=== PATIENT | male | born 1965 | race Two or more races ===

== ENCOUNTER 2017-07-15 14:38 | Emergency (ER) | payer MEDICAID ==
[~2017-07-15] VITALS: Ht 165.1 cm; Wt 77.1 kg
[~2017-07-15 14:38] MED LIST: CEPHALEXIN500 MG ORAL; NORCO 5-325 TA1 EAC1 ORAL
[2017-07-15] MEDS ORDERED: NKM (14:49)
[2017-07-15 14:55] VITALS: BP 152/96
--- NOTE | 2017-07-15 14:59 | Emergency Room Report ---
History of Present Illness General Chief Complaint: Chest Pain Source: Patient Present Illness HPI Patient is a 52-year-old male who presented after increased chest discomfort. Patient reports having increased chest pressure for approximately one day. Reports having pain to his left arm. The pain is constant in nature. He had associated left arm discomfort. He reports having prior history of high cholesterol. Patient denies smoker. Allergies: Coded Allergies: No Known Allergies (Unverified , 01/01/16) Patient History Reviewed Nursing Documentation: PMH: Agreed; PSxH: Agreed Nursing Documentation-PMH Past Medical History: No Stated History Review of Systems All Other Systems: negative except mentioned in HPI Physical Exam Vital Signs Date Time Temp Pulse Resp B/P (MAP) Pulse Ox O2 Delivery O2 Flow Rate FiO2 07/15/17 14:45 76 19 152/96 99 Room Air Sp02 EP Interpretation: reviewed, normal General Appearance: normal inspection, well appearing, no apparent distress, alert, GCS 15 Head: atraumatic ENT: normal ENT inspection, hearing grossly normal, normal voice Neck: normal inspection, full range of motion, supple, no bony tend Respiratory: normal inspection, lungs clear, normal breath sounds, no respiratory distress, no retraction, no wheezing Cardiovascular #1: regular rate, rhythm, no edema Gastrointestinal: normal inspection, normal bowel sounds, non tender, soft, no guarding, no hernia Genitourinary: no CVA tenderness Musculoskeletal: normal inspection, back normal, normal range of motion Neurologic: normal inspection, alert, oriented x3, responsive, compliance administrator III-XII nml as tested, speech normal Psychiatric: normal inspection, judgement/insight normal, mood/affect normal Skin: normal inspection, normal color, no rash Medical Decision Making Diagnostic Impression: Primary Impression: Chest pain Additional Impression: Unstable angina ER Course patient presented for chest pain.Differential diagnosis included but was not limited to acute coronary syndrome, pulmonary embolism, pneumonia, aortic dissection, shingles, pneumothorax, aortic dissection, esophageal rupture, pericarditis. Because of complexity of patient's case laboratory testing and imaging studies were ordered. Laboratory studies showed a normal troponin. EKG interpreted by me showed normal sinus rhythm with a rate of [address] or T wave changes. Patient had been sent in by his physician. The patient is advised that he should be admitted for further evaluation of cardiac disease. The patient was advised risk benefits alternatives of leaving AGAINST MEDICAL ADVICE and he indicated understanding and all questions are answered patient still continued want to leave and signed AGAINST MEDICAL ADVICE. Despite risks including but not limited to disability and worsening of current lifestyle. Labs Test 07/15/17 15:06 White Blood Count 9.4 K/UL (4.8-10.8) Red Blood Count 5.75 M/UL (4.70-6.10) Hemoglobin 17.5 G/DL (14.2-18.0) Hematocrit 49.5 % (42.0-52.0) Mean Corpuscular Volume 86 FL (80-99) Mean Corpuscular Hemoglobin 30.4 PG (27.0-31.0) Mean Corpuscular Hemoglobin Concent 35.4 G/DL (32.0-36.0) Red Cell Distribution Width 11.1 % (11.6-14.8) Platelet Count 255 K/UL (150-450) Mean Platelet Volume 6.8 FL (6.5-10.1) Neutrophils (%) (Auto) 64.2 % (45.0-75.0) Lymphocytes (%) (Auto) 27.4 % (20.0-45.0) Monocytes (%) (Auto) 6.9 % (1.0-10.0) Eosinophils (%) (Auto) 0.9 % (0.0-3.0) Basophils (%) (Auto) 0.6 % (0.0-2.0) Sodium Level 142 MMOL/L (136-145) Potassium Level 4.3 MMOL/L (3.5-5.1) Chloride Level 105 MMOL/L (98-107) Carbon Dioxide Level 28 MMOL/L (21-32) Anion Gap 9 mmol/L (5-15) Blood Urea Nitrogen 16 mg/dL (7-18) Creatinine 1.0 MG/DL (0.55-1.30) Estimat Glomerular Filtration Rate > 60 mL/min (>60) Glucose Level 106 MG/DL (74-106) Calcium Level 9.2 MG/DL (8.5-10.1) Total Bilirubin 0.8 MG/DL (0.2-1.0) Aspartate Amino Transf (AST/SGOT) 23 U/L (15-37) Alanine Aminotransferase (ALT/SGPT) 53 U/L (12-78) Alkaline Phosphatase 118 U/L (46-116) Total Creatine Kinase 155 U/L (26-308) Creatine Kinase MB 0.8 NG/ML (0.0-3.6) Creatine Kinase MB Relative Index 0.5 Troponin I 0.000 ng/mL (0.000-0.056) Pro-B-Type Natriuretic Peptide 12 pg/mL (0-125) Total Protein 7.9 G/DL (6.4-8.2) Albumin 4.3 G/DL (3.4-5.0) Globulin 3.6 g/dL Albumin/Globulin Ratio 1.2 (1.0-2.7) EKG Diagnostic Results Rate: normal - 77 Rhythm: NSR ST Segments: no acute changes Last Vital Signs Date Time Temp Pulse Resp B/P (MAP) Pulse Ox O2 Delivery O2 Flow Rate FiO2 07/15/17 14:55 74 19 152/96 99 Room Air Status: improved Disposition: AGAINST MEDICAL ADVICE Condition: Serious Ajit Lorenz July 15, 2017 14:59
[2017-07-15] MEDS ORDERED: Isovue-370 150ml vial INJ PRN (15:00)
[2017-07-15 15:32] LABS: ANION GAP 9 mmol/L (5-15); BLOOD UREA NITROGEN 16 mg/dL (7-18); CALCIUM 9.2 MG/DL (8.5-10.1); CARBON DIOXIDE 28 MMOL/L (21-32); CHLORIDE 105 MMOL/L (98-107); POTASSIUM 4.3 MMOL/L (3.5-5.1); SODIUM 142 MMOL/L (136-145)
[2017-07-15 15:34] LABS: BASOPHILS % (AUTO) 0.6 % (0.0-2.0); EOSINOPHILS % (AUTO) 0.9 % (0.0-3.0); HEMATOCRIT 49.5 % (42.0-52.0); HEMOGLOBIN 17.5 G/DL (14.2-18.0); LYMPHOCYTES % (AUTO) 27.4 % (20.0-45.0); MEAN CORPUSCULAR VOLUME 86 FL (80-99); MONOCYTES % (AUTO) 6.9 % (1.0-10.0); NEUTROPHILS % (AUTO) 64.2 % (45.0-75.0); PLATELET COUNT 255 K/UL (150-450); RED BLOOD COUNT 5.75 M/UL (4.70-6.10); RED CELL DISTRIBUTION WIDTH 11.1 % (11.6-14.8); WHITE BLOOD COUNT 9.4 K/UL (4.8-10.8)
--- NOTE | 2017-07-15 15:40 | Diagnostic Imaging Report ---
Indication: Dyspnea Comparison: None A single view chest radiograph was obtained. Findings: Cardiomediastinal appearance is within normal limits for age. Pulmonary vascularity is appropriate. The diaphragmatic contour is smooth and costophrenic angles are sharp. No pleural effusions are identified. The bones are unremarkable. Impression: No acute findings
[2017-07-15 15:51] LABS: ALANINE AMINOTRANSFERASE 53 U/L (12-78); ALBUMIN 4.3 G/DL (3.4-5.0); ALBUMIN/GLOBULIN RATIO 1.2 (1.0-2.7); ALKALINE PHOSPHATASE 118 U/L (46-116); ASPARTATE AMINO TRANSFERASE 23 U/L (15-37); BILIRUBIN,TOTAL 0.8 MG/DL (0.2-1.0); CKMB 0.8 NG/ML (0.0-3.6); CREATINE KINASE 155 U/L (26-308)
--- NOTE | 2017-07-15 16:41 | Diagnostic Imaging Report ---
Indication: Chest pain Technique: Continuous helical transaxial imaging of the chest was obtained from the thoracic inlet to the upper abdomen during rapid intravenous contrast administration. Arterial phase of enhancement obtained. Coronal 2-D reformats were also obtained and maximum intensity projection images in multiple planes. Study obtained in a Siemens sensation [address] Automatic Exposure Control was utilized. Total Dose length Product (DLP): 906.[address] Dose Index Volume (CTDIvol): 29.38 mGy Comparison: None Findings: The pulmonary artery is suboptimally opacified, but shows no definite filling defects. There is no adenopathy, pleural or pericardial effusions are identified. There is no aortic dissection or aneurysm identified within the chest. The lungs are clear, but the posterior sulcus of the lungs is below the [id number]. Visualized part of the upper abdomen is unremarkable. Impression: No evidence of pulmonary embolus. Somewhat limited study. Portion of the lower lung castro not imaged. The CT scanner at [facility] is accredited by the [employer] and the scans are performed using dose optimization techniques as appropriate to a performed exam including Automatic Exposure control.
[2017-07-15 16:58] VITALS: BP 131/85
[2017-07-15 18:30] VITALS: BP 116/81
--- NOTE | 2017-07-16 15:49 | Cardiology Report ---
APPROVED REPORT EKG Measurement Heart [id number] Normal sinus rhythm Normal ECG
== END 2017-07-15 18:32 | disposition left against medical advice (07) ==
LOC: EMR 15:33 → 2E 17:50 → UNDOADMIN 17:50 → EDBEDREQ 18:16 → CANBEDREQ 19:12
DX: R07.89 Other chest pain (principal); I20.0 Unstable angina
CPT/HCPCS: 36415; 71045; 71275; 80053; 82550; 82553; 83880; 84484; 85025; 93005; 99284; Q9967

== ENCOUNTER 2017-11-30 00:10 | Emergency (ER) | payer MEDICAID ==
[~2017-11-30] VITALS: Ht 160 cm; Wt 77.1 kg
[~2017-11-30 00:10] MED LIST changes: +NKM
[2017-11-30] MEDS ORDERED: Morphine Sulfate 4mg/ml Inj (IV USE ONLY) IVP ONE (00:30)
--- NOTE | 2017-11-30 00:53 | Emergency Room Report ---
History of Present Illness General Chief Complaint: Abdominal Pain Source: Patient Present Illness HPI Is a 52-year-old male with no past medical history. He presents with chief complaint of upper quadrant pain is been ongoing for the last 3 days. pain is 9 out of 10. Pain going to the back. He has nausea vomiting but no diarrhea. Has subjective fever and chills. Worse with eating. Worse with palpation. Radiating to the back. Never had this problem before. Not a drinker. Allergies: Coded Allergies: No Known Allergies (Unverified , 01/01/16) Patient History Past Medical History: none, see triage record, old chart reviewed Past Surgical History: none Pertinent Family History: none Social History: Denies: smoking Immunizations: other Reviewed Nursing Documentation: PMH: Agreed; PSxH: Agreed Nursing Documentation-PM Past Medical History: No Stated History Review of Systems Eye: Denies: eye pain, blurred vision ENT: Denies: ear pain, nose congestion, throat swelling Respiratory: Denies: cough, shortness of breath Cardiovascular: Denies: chest pain, palpitations Gastrointestinal: Reports: abdominal pain, nausea, vomiting; Denies: diarrhea Musculoskeletal: Denies: back pain, joint pain Skin: Denies: rash Neurological: Denies: headache, numbness Endocrine: Denies: increased thirst, increased urine Hematologic/Lymphatic: Denies: easy bruising All Other Systems: negative except mentioned in HPI Physical Exam Vital Signs Date Time Temp Pulse Resp B/P (MAP) Pulse Ox O2 Delivery O2 Flow Rate FiO2 11/30/17 00:14 98.4 80 21 136/91 96 Room Air 98.4 vitals normal Sp02 EP Interpretation: reviewed, normal General Appearance: well appearing, no apparent distress, alert Head: normocephalic, atraumatic Eyes: bilateral eye PERRL, bilateral eye EOMI ENT: hearing grossly normal, normal pharynx Neck: full range of motion, supple, no meningismus Respiratory: chest non-tender, lungs clear, normal breath sounds Cardiovascular #1: regular rate, rhythm, no murmur Gastrointestinal: normal bowel sounds, no mass, no organomegaly, no bruit, non- distended, tenderness - upper quadrants Musculoskeletal: back normal, gait/station normal, normal range of motion Psychiatric: mood/affect normal Skin: warm/dry Medical Decision Making Diagnostic Impression: Primary Impression: Ureteral calculus, right ER Course Patient with abdominal pain and has ureteral stone. There is some hematuria in his urine. Does have a kidney of kidney stone the past and able to pass it. No evidence of obstruction. No infection. Pain is better controlled now. We' ll discharge home. Lab Results Impression labs unremarkable CT/MRI/US Diagnostic Results CT/MRI/US Diagnostic Results : Imaging Test Ordered: CT abdomen and pelvis Impression Read by radiologist. 2 mm proximal right ureteral stone. Last Vital Signs Date Time Temp Pulse Resp B/P (MAP) Pulse Ox O2 Delivery O2 Flow Rate FiO2 11/30/17 00:14 98.4 80 21 136/91 96 Room Air 98.4 Status: improved Disposition: HOME, SELF-CARE Condition: Stable Scripts Tamsulosin HCl (Flomax) 0.4 Mg Cap.er.24h 0.4 MG ORAL DAILY, #30 CAP Prov: CHRISTOPHER CLANCY M.D. 11/30/17 Hydrocodone/Acetaminophen 5-325* (HYDROCODONE/ACETAMINOPHEN 5-325*) 1 Each Tablet 1 TAB ORAL Q6H PRN for For Pain, #20 TAB 0 Refills Prov: CHRISTOPHER CLANCY M.D. 11/30/17 Ibuprofen* (MOTRIN*) 600 Mg Tablet 600 MG ORAL THREE TIMES A DAY, #30 TAB 0 Refills Prov: CHRISTOPHER CLANCY M.D. 11/30/17 Additional Instructions: Follow-up with your doctor within 7 days. You may need a referral to see a urologist. Return if symptom worsen. CHRISTOPHER CLANCY M.D. Nov 30, 2017 00:53
--- NOTE | 2017-11-30 01:01 | Diagnostic Imaging Report ---
EXAM: CT Abdomen and Pelvis Without Intravenous Contrast CLINICAL HISTORY: Abdominal pain. TECHNIQUE: Axial computed tomography images of the abdomen and pelvis without intravenous contrast. CTDI is 25 mGy and DLP is 1220 mGy-cm. One or more of the following dose reduction techniques were used: automated exposure control, adjustment of the mA and/or kV according to patient size, use of iterative reconstruction technique. COMPARISON: None. FINDINGS: Lung bases: Scarring/atelectasis in lung bases. ABDOMEN: Liver: Unremarkable. Gallbladder and bile ducts: Unremarkable. No calcified stones. No ductal dilation. Pancreas: Unremarkable. No ductal dilation. Spleen: Unremarkable. No splenomegaly. Adrenals: Unremarkable. No mass. Kidneys and ureters: 2 mm stone in the proximal right ureter. No significant hydronephrosis. Nonobstructive right renal stone. Stomach and bowel: Diverticulosis. No bowel obstruction. No mucosal thickening. PELVIS: Appendix: Normal appendix. Bladder: Unremarkable. No stones. Reproductive: Unremarkable as visualized. ABDOMEN and PELVIS: Intraperitoneal space: Unremarkable. No free air. No significant fluid collection. Bones/joints: No acute fracture. No dislocation. Soft tissues: Unremarkable. Vasculature: Unremarkable. No abdominal aortic aneurysm. Lymph nodes: Unremarkable. No enlarged lymph nodes. IMPRESSION: 2 mm stone in the proximal right ureter. No significant hydronephrosis. Nonobstructive right renal stone.
[2017-11-30 01:04] LABS: APPEARANCE,URINE CLEAR; BILIRUBIN, URINE NEGATIVE (NEGATIVE); GLUCOSE, URINE (UA) NEGATIVE (NEGATIVE); KETONES,URINE NEGATIVE (NEGATIVE); LEUKOCYTE ESTERASE ,URINE NEGATIVE (NEGATIVE); NITRITE,URINE NEGATIVE (NEGATIVE); PH,URINE 5 (4.5-8.0); PROTEIN,URINE NEGATIVE (NEGATIVE); UROBILINOGEN,URINE NORMAL MG/DL (0.0-1.0)
[2017-11-30 01:11] LABS: BASOPHILS % (AUTO) 0.7 % (0.0-2.0); EOSINOPHILS % (AUTO) 1.6 % (0.0-3.0); HEMATOCRIT 48.5 % (42.0-52.0); HEMOGLOBIN 16.6 G/DL (14.2-18.0); LYMPHOCYTES % (AUTO) 24.6 % (20.0-45.0); MEAN CORPUSCULAR VOLUME 85 FL (80-99); MONOCYTES % (AUTO) 7.5 % (1.0-10.0); NEUTROPHILS % (AUTO) 65.6 % (45.0-75.0); PLATELET COUNT 263 K/UL (150-450); RED BLOOD COUNT 5.68 M/UL (4.70-6.10); RED CELL DISTRIBUTION WIDTH 10.7 % (11.6-14.8); WHITE BLOOD COUNT 10.2 K/UL (4.8-10.8)
[2017-11-30 01:12] LABS: COLOR,URINE YELLOW
[2017-11-30 01:23] LABS: ANION GAP 9 mmol/L (5-15); BLOOD UREA NITROGEN 23 mg/dL (7-18); CALCIUM 9.3 MG/DL (8.5-10.1); CARBON DIOXIDE 26 MMOL/L (21-32); CHLORIDE 108 MMOL/L (98-107); CREATININE 1.2 MG/DL (0.55-1.30); POTASSIUM 3.7 MMOL/L (3.5-5.1); SODIUM 143 MMOL/L (136-145)
[2017-11-30 01:27] LABS: ALANINE AMINOTRANSFERASE 62 U/L (12-78); ALBUMIN 4.1 G/DL (3.4-5.0); ALBUMIN/GLOBULIN RATIO 1.1 (1.0-2.7); ALKALINE PHOSPHATASE 124 U/L (46-116); ASPARTATE AMINO TRANSFERASE 27 U/L (15-37); BILIRUBIN,TOTAL 0.8 MG/DL (0.2-1.0)
[2017-11-30] MEDS ORDERED: IBUPROFEN600 MG ORAL (01:38)
[2017-11-30] MEDS ORDERED: HYDROCODON-ACE1 EA15 ORAL (01:38)
[2017-11-30] MEDS ORDERED: FLOMAX0.4 MG ORAL (01:38)
[2017-11-30 01:50] VITALS: BP 127/87
== END 2017-11-30 02:30 | disposition home or self-care (01) ==
LOC: EMR 02:29
DX: N20.1 Calculus of ureter (principal)
CPT/HCPCS: 36415; 74176; 80053; 81003; 83690; 85025; 96361; 96374; 96375; 99284; J2270; J2405

== ENCOUNTER 2020-01-28 11:10 | Emergency (ER) | payer MEDICAID ==
[~2020-01-28] VITALS: Ht 162.6 cm; Wt 69.9 kg
[~2020-01-28 11:10] MED LIST changes: +FLOMAX0.4 MG ORAL; +HYDROCODON-ACE1 EA15 ORAL; +IBUPROFEN600 MG ORAL
--- NOTE | 2020-01-28 11:27 | NUR ---
ED Nurse Note: Pt walked into ED for R side pain for 5 days. Pt has seen GI specialist but was inconclusive. Pt states he has sharp pains at night 8/10 with a small amount of vomiting. Pt is alert and orientedx4, ambulatory. He has been seen by JASON.
[2020-01-28 11:34] VITALS: BP 145/81
--- NOTE | 2020-01-28 11:35 | Emergency Room Report ---
History of Present Illness General Chief Complaint: Pain Present Illness HPI Patient is a 54-year-old male who presents for increased right-sided flank pain. Onset of symptoms approximately 5 days ago.Reports of increased pain to the right flank. Pain is sharp in nature. Associate with nausea and vomiting. Patient denies any fever but has apparently had some recent weight loss approximately 20 pounds. Had previous work-up in the past which included ultrasound which apparently did not show any evidence of gallstones. Pain is localized to the right side of the ribs. He had previously been prescribed omeprazole but had not had any improvement with this. Patient had not been monteiro ving any diarrhea. Reports having episodic vomiting associate with pain. Denies any diarrhea. Pain is worse with movement. (Ajit Lorenz MD) Allergies: Coded Allergies: No Known Allergies (Unverified , 01/01/16) COVID-19 Screening Contact w/high risk pt: No Experienced COVID-19 symptoms?: No COVID-19 Testing performed APPLIED ANTHROPOLOGIST: No (Ajit Lorenz MD) Patient History Reviewed Nursing Documentation: PMH: Agreed; PSxH: Agreed (Ajit Lorenz MD) Review of Systems All Other Systems: negative except mentioned in HPI (Ajit Lorenz MD) Physical Exam Vital Signs Date Time Temp Pulse Resp B/P (MAP) Pulse Ox O2 Delivery O2 Flow Rate FiO2 01/28/20 11:13 98.2 78 18 150/84 (106) 96 Room Air Sp02 EP Interpretation: reviewed, normal General Appearance: normal inspection, well appearing, no apparent distress, alert, GCS 15 Head: atraumatic ENT: normal ENT inspection, hearing grossly normal, normal voice Neck: normal inspection, full range of motion, supple, no bony tend Respiratory: normal inspection, lungs clear, normal breath sounds, no respiratory distress, no retraction, no wheezing Cardiovascular #1: regular rate, rhythm, no edema Gastrointestinal: normal inspection, normal bowel sounds, non tender, soft, no guarding, no hernia Genitourinary: no CVA tenderness Musculoskeletal: normal inspection, back normal, normal range of motion Neurologic: alert, motor strength/tone normal, field case manager III-XII nml as tested, respo nsive, speech normal, normal inspection Psychiatric: normal inspection, judgement/insight normal, mood/affect normal (Ajit Lorenz MD) Medical Decision Making Diagnostic Impression: Primary Impression: RUQ pain Additional Impressions: Renal calculi Enlarged prostate Diverticulosis ER Course Assumed care of the patient from the previous provider at approximately 1430. Please refer to initial note for full history and physical exam. Briefly, 54-year-old male presenting with right-sided abdominal pain several months duration. Labs returned within normal limits. At the time of signout we are awaiting CT results. CT shows previously demonstrated diverticulosis without diverticulitis, prostamegaly, right intrarenal calculus but no ureteral calculi. Also notes some mild fluid-filled small bowel loops which may indicate a mild enteritis or diarrheal illness of the patient denies symptoms. CT shows mild gallbladder wall thickening without definite stones. LFTs and bilirubin within normal limits. Patient states he is already had an ultrasound of the gallbladder and liver which did not show any gallbladder disease. Believe he would benefit from ERCP/MRCP or MRI at an outpatient basis. A copy of his report and labs have been provided. His pain is now resolved. He will call his PMD tomorrow to schedule this. Will discharge with pain medication. Stable for outpatient follow-up. Laboratory Tests Test 01/28/20 11:25 01/28/20 11:55 Urine Color Yellow Urine Appearance Clear Urine pH 7 (4.5-8.0) Urine Specific [place] 1.015 (1.005-1.035) Urine Protein Negative (NEGATIVE) Urine Glucose (UA) Negative (NEGATIVE) Urine Ketones 1+ (NEGATIVE) H Urine Blood Negative (NEGATIVE) Urine Nitrite Negative (NEGATIVE) Urine Bilirubin Negative (NEGATIVE) Urine Urobilinogen 1 MG/DL (0.0-1.0) H Urine Leukocyte Esterase 1+ (NEGATIVE) H Urine RBC 0 /HPF (0 - 0) Urine WBC 0-2 /HPF (0 - 0) Urine Squamous Epithelial Cells Occasional /LPF Urine Calcium Oxalate Crystals Few /LPF (NONE) Urine Bacteria Occasional /HPF (NONE) White Blood Count 8.6 K/UL (4.8-10.8) Red Blood Count 5.35 M/UL (4.70-6.10) Hemoglobin 16.3 G/DL (14.2-18.0) Hematocrit 48.4 % (42.0-52.0) Mean Corpuscular Volume 90 FL (80-99) Mean Corpuscular Hemoglobin 30.4 PG (27.0-31.0) Mean Corpuscular Hemoglobin Concent 33.6 G/DL (32.0-36.0) Red Cell Distribution Width 12.4 % (11.6-14.8) Platelet Count 235 K/UL (150-450) Mean Platelet Volume 6.3 FL (6.5-10.1) L Neutrophils (%) (Auto) 52.8 % (45.0-75.0) Lymphocytes (%) (Auto) 38.3 % (20.0-45.0) Monocytes (%) (Auto) 7.2 % (1.0-10.0) Eosinophils (%) (Auto) 1.0 % (0.0-3.0) Basophils (%) (Auto) 0.7 % (0.0-2.0) Prothrombin Time 11.5 SEC (9.30-11.50) Prothrombin Time INR 1.0 (0.9-1.1) Activated Partial Thromboplast Time 25 SEC (23-33) Sodium Level 142 MMOL/L (136-145) Potassium Level 3.8 MMOL/L (3.5-5.1) Chloride Level 105 MMOL/L (98-107) Carbon Dioxide Level 29 MMOL/L (21-32) Anion Gap 8 mmol/L (5-15) Blood Urea Nitrogen 14 mg/dL (7-18) Creatinine 1.1 MG/DL (0.55-1.30) Estimated Glomerular Filtration Rate > 60 mL/min (>60) Glucose Level 96 MG/DL (74-106) Calcium Level 8.7 MG/DL (8.5-10.1) Total Bilirubin 0.7 MG/DL (0.2-1.0) Aspartate Amino Transferase (AST) 25 U/L (15-37) Alanine Aminotransferase (ALT) 42 U/L (12-78) Alkaline Phosphatase 120 U/L (46-116) H Troponin I 0.001 ng/mL (0.000-0.056) Total Protein 7.3 G/DL (6.4-8.2) Albumin 4.0 G/DL (3.4-5.0) Globulin 3.3 g/dL Albumin/Globulin Ratio 1.2 (1.0-2.7) Lipase 318 U/L (73-393) (Luis Hyman MD) CT/MRI/US Diagnostic Results CT/MRI/US Diagnostic Results : Impression Impression: Limited assessment of the GI tract, due to lack of enteric contrast administration Prominent fluid-filled small bowel loops, could indicate mild enteritis and/or diarrheal illness. Nonobstructive right intrarenal calculus is again demonstrated. No evidence of ureteral calculus or obstructive uropathy. Previously demonstrated right ureteral calculus is no longer evident Colonic diverticulosis. No evidence of diverticulitis Mild gallbladder wall thickening, no definite gallstones. Significance/etiology uncertain. Consider further evaluation with sonography if there is high clinical suspicion for gallbladder disease. Prostatomegaly Bullous changes at both lung bases The CT scanner at [facility] is accredited by the [employer] and the scans are performed using protocols designed to limit radiation exposure to as low as reasonably achievable to attain images of sufficient resolution adequate for diagnostic evaluation. Dictated By: Reji Villasenor MD Electronically Signed By:Reji Villasenor MD Signed Date/Time01/28/20 4557 CC: Ajit Lorenz MD (Luis Hyman MD) Last Vital Signs Date Time Temp Pulse Resp B/P (MAP) Pulse Ox O2 Delivery O2 Flow Rate FiO2 01/28/20 11:13 98.2 78 18 150/84 (106) 96 Room Air (Ajit Lorenz MD) Disposition: HOME, SELF-CARE Condition: Stable Scripts Ondansetron Odt* (ZOFRAN ODT*) 4 Mg Tab.rapdis 4 MG BC EVERY 6 HOURS PRN for Nausea & Vomiting, #20 TAB 0 Refills Prov: Luis Hyman MD 01/28/20 Lidocaine Patch* (Lidoderm Patch*) 1 Each Adh..patch 1 PATCH TOPIC DAILY, #7 PATCH 0 Refills Patch(es) may remain in place for up to 12 hours in any 24-hour period. Prov: Luis Hyman MD 01/28/20 Ibuprofen* (MOTRIN*) 600 Mg Tablet 600 MG ORAL Q6H PRN for For Pain, #30 TAB 0 Refills Prov: Luis Hyman MD 01/28/20 Hydrocodone/Acetaminophen 5-325* (HYDROCODONE/ACETAMINOPHEN 5-325*) 1 Each Tablet 1 TAB ORAL Q6H PRN for For Pain, #20 TAB 0 Refills Prov: Luis Hyman MD 01/28/20 Referrals: [facility],REFERRING (PCP) Ajit Lorenz MD Jan 28, 2020 11:35 Luis Hyman MD Jan 28, 2020 15:01
[2020-01-28] MEDS ORDERED: Omnipaque-300 100ml vial INJ PRN (12:00)
[2020-01-28 12:14] LABS: BASOPHILS % (AUTO) 0.7 % (0.0-2.0); HEMATOCRIT 48.4 % (42.0-52.0); HEMOGLOBIN 16.3 G/DL (14.2-18.0); LYMPHOCYTES % (AUTO) 38.3 % (20.0-45.0); MEAN CORPUSCULAR VOLUME 90 FL (80-99); MONOCYTES % (AUTO) 7.2 % (1.0-10.0); NEUTROPHILS % (AUTO) 52.8 % (45.0-75.0); PLATELET COUNT 235 K/UL (150-450); RED BLOOD COUNT 5.35 M/UL (4.70-6.10); RED CELL DISTRIBUTION WIDTH 12.4 % (11.6-14.8); WHITE BLOOD COUNT 8.6 K/UL (4.8-10.8)
[2020-01-28] MEDS ORDERED: Morphine Sulfate 4mg/ml Inj (IV USE ONLY) IVP ONE ×2 (12:15→15:00)
[2020-01-28 12:17] LABS: APPEARANCE,URINE CLEAR; BILIRUBIN, URINE NEGATIVE (NEGATIVE); GLUCOSE, URINE (UA) NEGATIVE (NEGATIVE); KETONES,URINE 1+ (NEGATIVE); LEUKOCYTE ESTERASE ,URINE 1+ (NEGATIVE); NITRITE,URINE NEGATIVE (NEGATIVE); PH,URINE 7 (4.5-8.0); PROTEIN,URINE NEGATIVE (NEGATIVE); UROBILINOGEN,URINE 1 MG/DL (0.0-1.0)
[2020-01-28 12:18] LABS: COLOR,URINE YELLOW
[2020-01-28 12:26] LABS: ANION GAP 8 mmol/L (5-15); BLOOD UREA NITROGEN 14 mg/dL (7-18); CALCIUM 8.7 MG/DL (8.5-10.1); CARBON DIOXIDE 29 MMOL/L (21-32); CHLORIDE 105 MMOL/L (98-107); CREATININE 1.1 MG/DL (0.55-1.30); POTASSIUM 3.8 MMOL/L (3.5-5.1); SODIUM 142 MMOL/L (136-145)
[2020-01-28 12:30] LABS: ALANINE AMINOTRANSFERASE 42 U/L (12-78); ALBUMIN/GLOBULIN RATIO 1.2 (1.0-2.7); ALKALINE PHOSPHATASE 120 U/L (46-116); ASPARTATE AMINO TRANSFERASE 25 U/L (15-37); BILIRUBIN,TOTAL 0.7 MG/DL (0.2-1.0)
[2020-01-28 13:45] VITALS: BP 140/78
--- NOTE | 2020-01-28 14:43 | Diagnostic Imaging Report ---
Clinical Indication: Increased right-sided flank pain starting 5 days ago Technique: No oral contrast utilized, per emergency room physician request IV administration nonionic contrast. Venous phase spiral acquisition obtained through the abdomen and pelvis. Multiplanar reconstructions were generated. Total dose length product 283 mGycm. CTDIvol(s) 5 mGy. Dose reduction achieved using automated exposure control Comparison: 11/30/2017 noncontrast study Findings: Lack of enteric contrast limits assessment of the GI tract. There is colonic diverticulosis. No evidence of acute diverticulitis. The appendix is normal. The small bowel loops are diffusely prominent, predominantly limits of normal in caliber, fluid-filled. This extends all the way to the terminal ileum. In the distal and terminal ileum, there is some small bowel feces indicating stasis of contents. No free or loculated intraperitoneal gas or fluid is evident. The distal esophagus, stomach, duodenum are unremarkable. The gallbladder demonstrates mild wall thickening but no stones. No biliary ductal dilatation. The pancreatic duct is mildly ectatic. No intrinsic pancreatic parenchymal abnormality is demonstrated. The spleen, adrenals are all unremarkable. Previously demonstrated right intrarenal calculus is again demonstrated, best visualized on the coronal reconstructed images. The left kidney is unremarkable. No ureteral calculi, hydronephrosis, or hydroureter. Previously demonstrated right proximal ureteral calculus is no longer evident. The bladder is unremarkable. The prostate is somewhat prominent. No retroperitoneal or mesenteric mass or adenopathy. No pelvic mass or adenopathy. The included lung bases demonstrate small bullae. Some atelectasis and/or scarring is seen at both lung bases, right greater than left. The bones are unremarkable. Impression: Limited assessment of the GI tract, due to lack of enteric contrast administration Prominent fluid-filled small bowel loops, could indicate mild enteritis and/or diarrheal illness. Nonobstructive right intrarenal calculus is again demonstrated. No evidence of ureteral calculus or obstructive uropathy. Previously demonstrated right ureteral calculus is no longer evident Colonic diverticulosis. No evidence of diverticulitis Mild gallbladder wall thickening, no definite gallstones. Significance/etiology uncertain. Consider further evaluation with sonography if there is high clinical suspicion for gallbladder disease. Prostatomegaly Bullous changes at both lung bases The CT scanner at [facility] is accredited by the [employer] and the scans are performed using protocols designed to limit radiation exposure to as low as reasonably achievable to attain images of sufficient resolution adequate for diagnostic evaluation.
[2020-01-28] MEDS ORDERED: HYDROCODON-ACE1 EA15 ORAL ×3 (14:57→15:46)
[2020-01-28] MEDS ORDERED: LIDODERM700 M1 TOPIC (14:57)
[2020-01-28] MEDS ORDERED: IBUPROFEN600 M1 ORAL (14:57)
[2020-01-28] MEDS ORDERED: ONDANSETRON ODT4 MG BC (14:57)
[2020-01-28 15:34] VITALS: BP 142/80
--- NOTE | 2020-01-28 15:37 | NUR ---
ER DISCHARGE NOTE: Patient is cleared to be discharged per ERMD, pt is aox4, on room air, with stable vital signs. pt was given dc and prescription instructions, pt was able to verbalize understanding, pt id band and iv site removed without complications. pt is able to ambulate with steady gait. pt took all belongings. Pt educated on f/u appt and prescriptions.
== END 2020-01-28 15:37 | disposition home or self-care (01) ==
LOC: EMR 11:20
DX: N20.0 Calculus of kidney (principal); N40.0 Benign prostatic hyperplasia without lower urinary tract symptoms; K57.90 Diverticulosis of intestine, part unspecified, without perforation or abscess without bleeding
CPT/HCPCS: 36415; 74177; 80053; 81003; 83690; 84484; 85025; 85610; 85730; 96374; 96375; 96376; J2270; J2405; Q9965; S0028; Z7502; 99284

== ENCOUNTER 2020-05-02 19:48 | Emergency (ER) | payer MEDICAID ==
[~2020-05-02] VITALS: Ht 160 cm; Wt 70.3 kg
[~2020-05-02 19:48] MED LIST changes: +IBUPROFEN600 M1 ORAL; +LIDODERM700 M1 TOPIC; +ONDANSETRON ODT4 MG BC
--- NOTE | 2020-05-02 20:05 | NUR ---
ED Nurse Note: Patient came in the ED from home with left palm laceration. AOx4, calm. Up to date with is tetanus inj. Denies any numbness and tingling senation, able to move all fingers and wrist.
--- NOTE | 2020-05-02 20:13 | Emergency Room Report ---
History of Present Illness General Chief Complaint: Laceration Source: Patient Present Illness HPI Disclaimer: Please note that this report is being documented using [employer] technology. This can lead to erroneous entry secondary to incorrect interpretation by the dictating instrument. HPI: 54-year-old [id number] male presents for evaluation of hand laceration. He was cleaning a compressor when accidentally slipped and sustained a laceration to the hypothenar eminence on the left hand. States his tetanus is up-to-date. Applied pressure, cleaned with soap and water and applied hydrogen peroxide. This occurred approximately 3 hours ago. No further bleeding since the initial injury. Denies numbness or tingling. Has full use of the hand. Denies pain to the wrist. No pulsatile bleeding noted. 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 EOMI. Resp: Normal work of breathing Skin: Intact. No abrasions, laceration or rash over the exposed skin MSK: Normal tone and bulk. Moving all extremities. All digits on the left hand have full flexion extension. Full range of motion of the left wrist. Brisk capillary refill in all digits. Palpable radial pulse. There is a approximately 2.5 cm linear superficial laceration over the hypothenar eminence in the left palm. Hemostatic. No obvious debris. Does not extend into the musculature. Neuro: Awake and alert. Mentating appropriately Procedures Laceration/Wound Repair Laceration/Wound Repair : Consent: Verbal Wound Location: upper extremity Wound's Depth, Shape: superficial, linear Wound Length (cm): 2 Wound Explored: clean Irrigated w/ Saline (ccs): 500 Betadine Prep?: Yes Anesthesia: 1% Lidocaine Volume Anesthetic (ccs): 5 Wound Debrided: None Wound Repaired With: sutures Suture Size/Type: 4:0, proline Number of Sutures: 7 Layer Closure?: No Sterile Dressing Applied?: Yes Patient Tolerated: Well Complications: None Medical Decision Making Diagnostic Impression: Primary Impression: Hand laceration ER Course 54-year-old male presents for superficial laceration to the hypothenar eminence of the left hand. Patient was irrigated under continuous pressure and cleaned with soap and water. Wound was well approximated and sutured with 7 simple interrupted 4-0 Prolene sutures. Tolerated procedure well. No blood loss. No complications. He was neurologically intact at the start and end of the procedure. He will follow-up for suture removal next week. His tetanus is up-to-date. He has regular follow-up with his PMD but instructed to return to the ER with new or worsening symptoms. He understands and agrees with the treatment plan. Last Vital Signs Date Time Temp Pulse Resp B/P (MAP) Pulse Ox O2 Delivery O2 Flow Rate FiO2 05/02/20 20:02 98.1 91 18 138/93 (108) 95 Room Air Disposition: HOME, SELF-CARE Condition: Stable Scripts Bacitracin (Bacitracin) 28.4 Gm Oint...g. 1 APPLIC TOPIC BID for 5 Days, #28 GM Prov: Luis Hyman MD 05/02/20 Luis Hyman MD May 02, 2020 20:13
--- NOTE | 2020-05-02 20:25 | NUR ---
ED Nurse Note: Laceration repair completed by dr. Hyman, well tolerated.
[2020-05-02] MEDS ORDERED: BACITRACIN15 GM TOPIC (20:32)
--- NOTE | 2020-05-02 20:40 | NUR ---
ER DISCHARGE NOTE: Patient is cleared to be discharged per ERMD, pt is aox4, on room air, with stable vital signs. pt was given dc and prescription instructions, pt was able to verbalize understanding, pt id band removed pt is able to ambulate with steady gait. pt took all belongings.
[2020-05-02 21:17] VITALS: BP 138/93
== END 2020-05-02 20:40 | disposition home or self-care (01) ==
LOC: EMR 20:35
DX: S61.412A Laceration without foreign body of left hand, initial encounter (principal); W19.XXXA Unspecified fall, initial encounter; Y92.9 Unspecified place or not applicable
CPT/HCPCS: 12001; Z7502; 99282